=== PATIENT | male | born 2000 | race Caucasian/White ===

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

== ENCOUNTER 2020-03-23 23:03 | Emergency (ER) | payer SELFPAY ==
[~2020-03-23 23:03] MED LIST: EPIPEN 2-P0.3 MG/0.3 INJ; LODINE CAP 300300 MG PO; MEDROL4 MG PO; NORFLEX 100 MG100 MG PO
[2020-03-23 23:56] LABS: HEMOGLOBIN 14.5 gm/dl (14.0-17.5); RED BLOOD COUNT 4.74 M/UL (4.20-5.50); WHITE BLOOD COUNT 8.4 K/UL (4.5-11.0)
[2020-03-23 23:58] LABS: BUN/CREATININE RATIO 26 (0-10)
[2020-03-24] MEDS ORDERED: IBUPROFEN800 MG PO (01:43)
== END 2020-03-24 01:50 | disposition home or self-care (01) ==
LOC: ER1 23:03
PROVIDERS: Emergency Medicine
DX: I31.9 Disease of pericardium, unspecified (principal)
CPT/HCPCS: 71046; 80053; 82550; 82553; 83880; 84484; 85025; 85610; 85652; 85730; 86140; 93005; 99285

== ENCOUNTER 2020-04-07 11:29 | Emergency (ER) | payer SELFPAY ==
[~2020-04-07 11:29] MED LIST changes: +IBUPROFEN800 MG PO
[2020-04-07] MEDS ORDERED: CLOTRIMAZOLE MC (13:08)
== END 2020-04-07 13:20 | disposition home or self-care (01) ==
LOC: ER1 11:29
DX: B35.3 Tinea pedis (principal)
CPT/HCPCS: 99282

== ENCOUNTER 2020-05-15 00:06 | Emergency (ER) | payer SELFPAY ==
[~2020-05-15 00:06] MED LIST changes: +CLOTRIMAZOLE MC
[2020-05-15 04:10] LABS: RED BLOOD COUNT 4.56 M/UL (4.20-5.50); WHITE BLOOD COUNT 7.4 K/UL (4.5-11.0)
[2020-05-15 04:42] LABS: BUN/CREATININE RATIO 22 (0-10)
== END 2020-05-15 06:37 | disposition home or self-care (01) ==
LOC: ER1 00:06
PROVIDERS: Emergency Medicine
DX: G54.0 Brachial plexus disorders (principal); R60.0 Localized edema
CPT/HCPCS: 70450; 71045; 72125; 80053; 83735; 85025; 85610; 85730; 99284